=== PATIENT | male | born 1985 | race African-American/Black ===

== ENCOUNTER 2023-05-16 09:32 | Emergency (ER) | payer OTHER ==
[2023-05-16 09:39] VITALS: BP 134/89; PULSE 58; RESP 20; TEMP 98; BMI 23.0
[2023-05-16] MEDS ORDERED: KETOROLAC TROMETHAMINE 30 MG/1 ML VIAL ONE (10:08)
[2023-05-16] MEDS: KETOROLAC TROMETHAMINE 30 MG/1 ML VIAL IM ONE (10:15)
== END 2023-05-16 16:09 | disposition home or self-care (01) ==
LOC: JERFT 09:32
PROC: 3E0233Z Introduction of Anti-inflammatory into Muscle, Percutaneous Approach (ICD-10-PCS; principal; 2023-05-16)
DX: S49.91XA Unspecified injury of right shoulder and upper arm, initial encounter (principal); W01.0XXA Fall on same level from slipping, tripping and stumbling without subsequent striking against object, initial encounter; Y92.009 Unspecified place in unspecified non-institutional (private) residence as the place of occurrence of the external cause
CPT/HCPCS: 73030-TC-RT-FY; 99284-25